=== PATIENT | male | born 1950 | race Caucasian/White ===

== ENCOUNTER 2016-09-07 20:48 | Emergency (ER) | payer MEDICARE ==
[~2016-09-07] VITALS: Ht 180.3 cm; Wt 88.9 kg
[~2016-09-07 20:48] MED LIST: CARV3.12 PO; DOXY50CA PO; ENOX100D SQ; FENO54TA PO; FOLI1TAB16 PO; FURO40TA4 PO; LISI-338 PO; POTA20LI27 PO; WARF-78 PO
[2016-09-07 21:00] VITALS: BP 165/102
[2016-09-07] MEDS ORDERED: HYDROcodone/APAP 5/325MG 1 TAB TABLET PO ONE (22:30)
[2016-09-07] MEDS ORDERED: DIPHTH,PERTUSS(ACELL),TET TOX 0.5 ML DISP.SYRIN. VAX IM ONE (22:30)
[2016-09-07] MEDS ORDERED: LIDOCAINE 1% / SOD BICARB 8.4% 20 ML VIAL. IJ ONE (22:38)
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
[2016-09-08] MEDS ORDERED: HYDR-971 PO (00:53)
[2016-09-08] MEDS ORDERED: CEPH-264 PO (00:53)
[2016-09-08] MEDS ORDERED: IBUP-1007 PO (00:53)
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
[2016-09-08] MEDS ORDERED: IBUPROFEN 600 MG TABLET. PO ONE (01:30)
[2016-09-08] MEDS ORDERED: HYDROcodone/APAP 5/325MG 1 TAB TABLET PO ONE (01:30)
--- NOTE | 2016-09-08 07:48 | RAD ---
Right wrist, 3 views, 09/07/2016: History: Wrist injury, pain There is a nondisplaced fracture of the distal radius. This probably involves the articular surface. No other fracture or dislocation is identified. There are moderate degenerative changes at the wrist. A well-defined lucency in the navicular bone is compatible with a degenerative type cyst. Moderate soft tissue swelling is present. IMPRESSION: Nondisplaced fracture of the distal right radius.
--- NOTE | 2016-09-08 08:05 | RAD ---
AP lumbar spine, 09/07/2016: History: Fall, back pain Only an AP view was obtained as requested. The vertebral heights cannot be adequately assessed on this incomplete exam. There appear to be mild scattered degenerative changes.
== END 2016-09-08 00:59 | disposition home or self-care (01) ==
LOC: ER 20:48
DX: S02.82XB Fracture of other specified skull and facial bones, left side, initial encounter for open fracture (principal); S02.2XXA Fracture of nasal bones, initial encounter for closed fracture; S52.501A Unspecified fracture of the lower end of right radius, initial encounter for closed fracture; S01.412A Laceration without foreign body of left cheek and temporomandibular area, initial encounter; S39.92XA Unspecified injury of lower back, initial encounter; I11.0 Hypertensive heart disease with heart failure; I50.9 Heart failure, unspecified; E78.00 Pure hypercholesterolemia, unspecified; G47.00 Insomnia, unspecified; E78.1 Pure hyperglyceridemia; I42.9 Cardiomyopathy, unspecified; Y04.0XXA Assault by unarmed brawl or fight, initial encounter; Y93.89 Activity, other specified; Y92.481 Parking lot as the place of occurrence of the external cause; Y99.8 Other external cause status
CPT/HCPCS: 12011; 12013; 29125; 70450; 70486; 72020; 72125; 73110; 90471; 90715; 99284-25

== ENCOUNTER → 2016-09-28 | Outpatient (CLI) | payer MEDICARE ==
[2016-09-07 21:00] VITALS: BP 165/102
[~2016-09-28] MED LIST changes: +CEPH-264 PO; +HYDR-971 PO; +IBUP-1007 PO
--- NOTE | 2016-09-28 16:50 | KCIC ---
MR LUMBAR SPINE HISTORY: Acute bilateral low back pain with sciatica Technique: Sagittal T2, sagittal STIR, and sagittal T1-weighted images were obtained. Additional axial T1 and T2 weighted imaging was also performed. FINDINGS: There is an acute compression fracture L1 with approximately 40 percent loss of vertebral body height. There is some retropulsion of the posterior cortex which nearly abuts the conus but does not cause mass effect upon it. The fracture appears to involve the anterior and middle columns. No other compression fractures are identified. There is moderate to advanced disc height loss at all levels. Visualized intra-abdominal contents are within normal limits. At L5-S1 there is severe right foraminal stenosis from correlation disc height loss and facet encroachment of the foramen. Correlate for right L5 radiculopathy. L4-L5 there is disc height loss but no spinal stenosis. At L3-L4 there is facet arthropathy and disc height loss. There is osteophytic encroachment of the left foramen which abuts the exiting L3 nerve but does not cause mass effect upon it. At L2-L3 there is no spinal stenosis. L1-L2 there is no spinal stenosis. IMPRESSION: Acute compression fracture at L1. There is retropulsion of the posterior cortex which nearly abuts the conus but does not cause mass effect upon it. The fracture involves the anterior and middle columns. Multilevel degenerative disc disease as detailed above. Of note, there is severe neural foraminal stenosis on the right at L5-S1. Correlate for right L5 radiculopathy symptoms. Electronically signed by: Zak Robins MD (09/28/2016 4:47 PM)
== END | disposition home or self-care (01) ==
LOC: KCIC MRI 15:37
PROVIDERS: ATTEND Family Medicine
DX: M48.56XA Collapsed vertebra, not elsewhere classified, lumbar region, initial encounter for fracture (principal); M51.36 Other intervertebral disc degeneration, lumbar region; M48.07 Spinal stenosis, lumbosacral region
CPT/HCPCS: 72148

== ENCOUNTER → 2016-11-04 | Outpatient (CLI) | payer MEDICARE ==
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
== END | disposition home or self-care (01) ==
LOC: RAD 15:59
PROVIDERS: ATTEND Neurological Surgery
DX: S32.000A Wedge compression fracture of unspecified lumbar vertebra, initial encounter for closed fracture (principal); X58.XXXA Exposure to other specified factors, initial encounter; Y93.89 Activity, other specified; Y92.89 Other specified places as the place of occurrence of the external cause; Y99.8 Other external cause status
CPT/HCPCS: 72100

== ENCOUNTER 2017-06-10 05:38 | Inpatient (IN) | payer MEDICARE ==
[2017-06-10 06:49] LABS: ADD MAN DIFF? NO
[2017-06-10 06:53] LABS: BASO # 0.1 x10^3/uL (0.0-0.2); BASO % 1 % (0-3); EOS # 0.1 x10^3/uL (0.0-0.7); EOS % 1 % (0-3); HEMATOCRIT 40.9 % (39.0-53.0); HEMOGLOBIN 13.7 g/dL (13.0-17.5); LYMPH # 1.2 x10^3/uL (1.0-4.8); LYMPH % 10 % (24-48); MEAN CORPUSCULAR HEMOGLOBIN 30 pg (25-35); MEAN CORPUSCULAR HGB CONC 34 g/dL (31-37); MEAN CORPUSCULAR VOLUME 89 fL (79-100); MONO # 0.6 x10^3/uL (0.0-1.1); MONO % 5 % (0-9); NEUT # 9.9 x10^3uL (1.8-7.7); NEUT % 83 % (31-73); PLATELET COUNT 233 x10^3/uL (140-400); RED BLOOD COUNT 4.59 x10^6/uL (4.30-5.70); RED CELL DISTRIBUTION WIDTH 14.2 % (11.5-14.5); WHITE BLOOD COUNT 11.9 x10^3/uL (4.0-11.0)
[2017-06-10 07:00] LABS: ANION GAP 13 (6-14); BLOOD UREA NITROGEN 26 mg/dL (8-26); BUN/CREATININE RATIO 17 (6-20); CALCIUM 9.2 mg/dL (8.5-10.1); CARBON DIOXIDE 25 mmol/L (21-32); CHLORIDE 100 mmol/L (98-107); CREATININE 1.5 mg/dL (0.7-1.3); GFR 46.7; GLUCOSE 159 mg/dL (70-99); POTASSIUM 3.7 mmol/L (3.5-5.1); SODIUM 138 mmol/L (136-145)
[2017-06-10 07:06] LABS: ALBUMIN 4.3 g/dL (3.4-5.0); ALK PHOS 55 U/L (46-116); ALT (SGPT) 26 U/L (16-63); AST (SGOT) 35 U/L (15-37); C-REACTIVE PROTEIN 2.5 mg/L (0-3.3); TOTAL BILIRUBIN 0.5 mg/dL (0.2-1.0); TOTAL PROTEIN 8.4 g/dL (6.4-8.2)
[2017-06-10] MEDS: ONDANSETRON PF 4 MG/2 ML VIAL. IV (07:09)
[2017-06-10] MEDS: fentaNYL PF VIAL 100 MCG/2 ML VIAL IV ×2 (07:09→08:27)
[2017-06-10 07:36] LABS: BACTERIA,URINE 0 /HPF (0-FEW); BILIRUBIN,URINE NEGATIVE (NEG); CLARITY,URINE CLEAR; COLOR,URINE YELLOW; GLUCOSE,URINE NEGATIVE (NEG); HYALINE CASTS, URINE OCCASIONAL /HPF; NITRITE,URINE NEGATIVE (NEG); PROTEIN,URINE 100 mg/dL (NEG-TRACE); RBC,URINE 0 /HPF (0-2); UROBILINOGEN,URINE 0.2 mg/dL (0.2 mg/dL); WBC,URINE 0 /HPF (0-4)
[2017-06-10] MEDS: IV NORMAL SALINE 1000ML BAG 1,000 ML IV ×2 (07:56→15:44)
[2017-06-10 08:23] LABS: LIPASE 89 U/L (73-393)
[2017-06-10] MEDS: IOHEXOL 300 MG/ML 100ML VIAL. IV (08:30)
[2017-06-10] MEDS ORDERED: CONTRAST GIVEN MC (08:30)
[2017-06-10] MEDS: IOHEXOL 240 MG/ML 50ML VIAL. PO (08:30)
[2017-06-10] MEDS ORDERED: ONDANSETRON PF 4 MG/2 ML VIAL. IV ×2 (12:15→14:45)
[2017-06-10] MEDS ORDERED: ACETAMINOPHEN 325 MG TABLET. PO (14:45)
[2017-06-10] MEDS ORDERED: hydrALAZINE 20 MG/ML VIAL. IVP (14:45)
[2017-06-10] MEDS ORDERED: traMADol 50 MG TABLET PO (14:45)
[2017-06-10] MEDS ORDERED: DOCUSATE SODIUM 100 MG CAPSULE. PO (14:45)
[2017-06-10] MEDS: MORPHINE SULFATE 2 MG/ML DISP.SYRIN. IV (15:16)
[2017-06-10 15:21] LABS: INR 1.1 (0.8-1.1); PROTHROMBIN TIME PATIENT 13.7 SEC (11.7-14.0)
[2017-06-10] MEDS: ENOXAPARIN 40 MG/0.4 ML SYRINGE. SQ (15:45)
[2017-06-10] MEDS: HYDROcodone/APAP 5/325MG 1 TAB TABLET PO ×2 (16:40→21:23)
[2017-06-10] MEDS: CARVEDILOL 12.5 MG TABLET. PO (16:40)
[2017-06-10] MEDS ORDERED: CARVEDILOL 3.125 MG TABLET. PO (17:00)
[2017-06-10] MEDS ORDERED: PNEUMOCOCCAL VAX SCREEN BY RX. MC (18:00)
[2017-06-10] MEDS: LACTOBACILLUS RHAMNOSUS GG 1 CAPSULE. PO (21:24)
[2017-06-10] MEDS: PNEUMOC CONJ VACC 23-VALENT 0.5 ML VIAL. VAX IM (21:27)
[2017-06-11] MEDS: MORPHINE SULFATE 2 MG/ML DISP.SYRIN. IV ×2 (01:18→20:40)
[2017-06-11] MEDS: IV NORMAL SALINE 1000ML BAG 1,000 ML IV ×2 (01:20→10:45)
[2017-06-11] MEDS: HYDROcodone/APAP 5/325MG 1 TAB TABLET PO ×2 (03:08→08:30)
[2017-06-11 04:45] LABS: BASO % 0 % (0-3); EOS % 0 % (0-3); HEMATOCRIT 41.3 % (39.0-53.0); HEMOGLOBIN 13.4 g/dL (13.0-17.5); LYMPH # 0.8 x10^3/uL (1.0-4.8); LYMPH % 6 % (24-48); MEAN CORPUSCULAR HEMOGLOBIN 29 pg (25-35); MEAN CORPUSCULAR HGB CONC 32 g/dL (31-37); MEAN CORPUSCULAR VOLUME 90 fL (79-100); MONO # 0.9 x10^3/uL (0.0-1.1); MONO % 7 % (0-9); NEUT # 11.6 x10^3uL (1.8-7.7); NEUT % 87 % (31-73); PLATELET COUNT 195 x10^3/uL (140-400); RED BLOOD COUNT 4.57 x10^6/uL (4.30-5.70); RED CELL DISTRIBUTION WIDTH 14.7 % (11.5-14.5); WHITE BLOOD COUNT 13.4 x10^3/uL (4.0-11.0)
[2017-06-11 05:08] LABS: ADD MAN DIFF? YES
[2017-06-11 05:12] LABS: ANION GAP 10 (6-14); BLOOD UREA NITROGEN 25 mg/dL (8-26); CALCIUM 8.6 mg/dL (8.5-10.1); CARBON DIOXIDE 26 mmol/L (21-32); CHLORIDE 101 mmol/L (98-107); CREATININE 1.7 mg/dL (0.7-1.3); GFR 40.4; GLUCOSE 115 mg/dL (70-99); POTASSIUM 3.7 mmol/L (3.5-5.1); SODIUM 137 mmol/L (136-145)
[2017-06-11] MEDS: LACTOBACILLUS RHAMNOSUS GG 1 CAPSULE. PO ×2 (08:30→20:37)
[2017-06-11] MEDS: FUROSEMIDE 20 MG TABLET PO (08:30)
[2017-06-11] MEDS: FOLIC ACID 1 MG TABLET. PO (08:30)
[2017-06-11] MEDS: FENOFIBRATE,MICRONIZED 134 MG CAPSULE PO (08:30)
[2017-06-11] MEDS: LISINOPRIL 5 MG TABLET. PO (08:31)
[2017-06-11] MEDS: CARVEDILOL 12.5 MG TABLET. PO ×2 (08:31→17:19)
[2017-06-11] MEDS: POTASSIUM CHLORIDE 10 MEQ TABLET.ER. PO (08:31)
[2017-06-11] MEDS: cefTRIAXone IV Push 1 GM VIAL. IVP ×2 (09:00→11:58)
[2017-06-11] MEDS ORDERED: POTASSIUM CHLORIDE 20 MEQ/15 ML ORAL LIQUID. PO (09:00)
[2017-06-11] MEDS ORDERED: FUROSEMIDE 40 MG TABLET. PO (09:00)
[2017-06-11] MEDS ORDERED: FENOFIBRATE 54 MG TABLET. PO (09:00)
[2017-06-11 11:59] LABS: % BANDS 7 % (0-9); % LYMPHS 5 % (24-48); % MONOS 9 % (0-10); % SEGS 79 % (35-66); PLT ESTIMATE ADEQUATE (ADEQUATE)
[2017-06-11 12:00] LABS: OVALOCYTES FEW
[2017-06-11] MEDS: ENOXAPARIN 40 MG/0.4 ML SYRINGE. SQ (17:20)
[2017-06-11] MEDS: HYDROcodone/APAP 10/325 1 TAB TABLET PO (20:37)
[2017-06-12] MEDS: FOLIC ACID 1 MG TABLET. PO (08:07)
[2017-06-12] MEDS: LACTOBACILLUS RHAMNOSUS GG 1 CAPSULE. PO (08:08)
[2017-06-12] MEDS: FUROSEMIDE 20 MG TABLET PO (08:08)
[2017-06-12] MEDS: POTASSIUM CHLORIDE 10 MEQ TABLET.ER. PO (08:08)
[2017-06-12] MEDS: FENOFIBRATE,MICRONIZED 134 MG CAPSULE PO (08:08)
[2017-06-12] MEDS: HYDROcodone/APAP 10/325 1 TAB TABLET PO (08:08)
[2017-06-12] MEDS: CARVEDILOL 12.5 MG TABLET. PO (08:09)
[2017-06-12] MEDS: LISINOPRIL 5 MG TABLET. PO (08:09)
[2017-06-12 11:08] LABS: ANION GAP 7 (6-14); BLOOD UREA NITROGEN 28 mg/dL (8-26); CALCIUM 8.1 mg/dL (8.5-10.1); CARBON DIOXIDE 27 mmol/L (21-32); CHLORIDE 98 mmol/L (98-107); CREATININE 2.2 mg/dL (0.7-1.3); GLUCOSE 141 mg/dL (70-99); POTASSIUM 3.5 mmol/L (3.5-5.1); SODIUM 132 mmol/L (136-145)
[2017-06-12] MEDS: cefTRIAXone IV Push 1 GM VIAL. IVP (11:31)
== END 2017-06-12 16:00 | disposition home or self-care (01) | DRG 698 ==
LOC: ER 05:38 → ED HOLD 11:53 → 6 SOUTH 14:15
DX: N28.0 Ischemia and infarction of kidney (principal); N17.0 Acute kidney failure with tubular necrosis; N12 Tubulo-interstitial nephritis, not specified as acute or chronic; I13.0 Hypertensive heart and chronic kidney disease with heart failure and stage 1 through stage 4 chronic kidney disease, or unspecified chronic kidney disease; I42.9 Cardiomyopathy, unspecified; N28.1 Cyst of kidney, acquired; E78.1 Pure hyperglyceridemia; E78.5 Hyperlipidemia, unspecified; I25.10 Atherosclerotic heart disease of native coronary artery without angina pectoris; I25.2 Old myocardial infarction; G47.00 Insomnia, unspecified; Z79.01 Long term (current) use of anticoagulants; J30.2 Other seasonal allergic rhinitis; Z79.899 Other long term (current) drug therapy; Z82.49 Family history of ischemic heart disease and other diseases of the circulatory system; Z83.3 Family history of diabetes mellitus; Z87.81 Personal history of (healed) traumatic fracture; N18.3 Chronic kidney disease, stage 3 (moderate)
CPT/HCPCS: 36415; 74177; 76770; 80048; 80053; 81001; 83690; 85007; 85025; 85610; 86140; 90732; 96361; 96365; 96375; 96376; 99285; 99285-25; J0690; J0696; J1650; J2270; J2405; J3010; J7030; Q9966; Q9967

== ENCOUNTER 2017-06-16 21:59 | Inpatient (IN) | payer MEDICARE ==
[2017-06-16 22:39] LABS: ANION GAP 9 (6-14); BLOOD UREA NITROGEN 13 mg/dL (8-26); BUN/CREATININE RATIO 8 (6-20); CALCIUM 8.3 mg/dL (8.5-10.1); CARBON DIOXIDE 29 mmol/L (21-32); CHLORIDE 99 mmol/L (98-107); CREATININE 1.7 mg/dL (0.7-1.3); GFR 40.4; GLUCOSE 120 mg/dL (70-99); POTASSIUM 3.9 mmol/L (3.5-5.1); SODIUM 137 mmol/L (136-145)
[2017-06-16 22:46] LABS: ALBUMIN 3.4 g/dL (3.4-5.0); ALBUMIN/GLOBULIN RATIO 0.8 (1.0-1.7); ALK PHOS 57 U/L (46-116); ALT (SGPT) 51 U/L (16-63); AST (SGOT) 36 U/L (15-37); TOTAL BILIRUBIN 0.5 mg/dL (0.2-1.0); TOTAL PROTEIN 7.8 g/dL (6.4-8.2)
[2017-06-16 22:47] LABS: TROPONINI 0.028 ng/mL (0.000-0.055)
[2017-06-16] MEDS: ACETAMINOPHEN 500 MG TABLET PO ×2 (22:47)
[2017-06-16 22:48] LABS: LACTIC ACID 1.5 mmol/L (0.4-2.0)
[2017-06-16] MEDS: dilTIAZem IV PUSH 25 MG/5 ML VIAL IVP ×2 (23:02)
[2017-06-16 23:14] LABS: ADD MAN DIFF? NO
[2017-06-16 23:16] LABS: BASO # 0.1 x10^3/uL (0.0-0.2); BASO % 1 % (0-3); EOS # 0.3 x10^3/uL (0.0-0.7); EOS % 4 % (0-3); HEMATOCRIT 37.4 % (39.0-53.0); HEMOGLOBIN 12.5 g/dL (13.0-17.5); LYMPH # 0.7 x10^3/uL (1.0-4.8); LYMPH % 9 % (24-48); MEAN CORPUSCULAR HEMOGLOBIN 30 pg (25-35); MEAN CORPUSCULAR HGB CONC 34 g/dL (31-37); MEAN CORPUSCULAR VOLUME 89 fL (79-100); MONO # 0.9 x10^3/uL (0.0-1.1); MONO % 12 % (0-9); NEUT # 5.9 x10^3uL (1.8-7.7); NEUT % 75 % (31-73); PLATELET COUNT 252 x10^3/uL (140-400); RED BLOOD COUNT 4.22 x10^6/uL (4.30-5.70); RED CELL DISTRIBUTION WIDTH 14.3 % (11.5-14.5); WHITE BLOOD COUNT 7.9 x10^3/uL (4.0-11.0)
[2017-06-16 23:19] LABS: BILIRUBIN,URINE NEGATIVE (NEG); COLOR,URINE YELLOW; GLUCOSE,URINE NEGATIVE (NEG); NITRITE,URINE NEGATIVE (NEG); PH,URINE 6.5; PROTEIN,URINE NEGATIVE (NEG-TRACE)
[2017-06-16 23:21] LABS: CLARITY,URINE CLEAR
[2017-06-16 23:22] LABS: BACTERIA,URINE 0 /HPF (0-FEW); RBC,URINE 0 /HPF (0-2); SQUAMOUS EPITHELIAL CELL,UR OCC /LPF; WBC,URINE 0 /HPF (0-4)
[2017-06-16] MEDS: FUROSEMIDE 40 MG/4 ML VIAL. IVP ×2 (23:26)
[2017-06-16 23:39] LABS: INFLUENZA A PATIENT NEGATIVE (NEGATIVE)
[2017-06-16 23:40] LABS: INFLUENZA B PATIENT POSITIVE (NEGATIVE); OBC FLU VALID
[2017-06-16] MEDS ORDERED: fentaNYL PF VIAL 100 MCG/2 ML VIAL IV ×2 (23:45)
[2017-06-16] MEDS ORDERED: NITROGLYCERIN SUBLINGUAL 0.4 MG BOTTLE OF 25. SL ×2 (23:45)
[2017-06-16] MEDS ORDERED: ONDANSETRON PF 4 MG/2 ML VIAL. IV ×2 (23:45)
[2017-06-16] MEDS: PIPERACILLIN/TAZOBACTAM 4.5 GM in IV NORMAL SALINE 100ML 100 ML IV (23:48)
[2017-06-16] MEDS: dilTIAZem VIAL 125 MG in IV DEXTROSE 5% 100 ML IV (23:59)
[2017-06-17] MEDS: OSELTAMIVIR 75 MG CAPSULE PO ×4 (00:27→08:16)
[2017-06-17] MEDS: VANCOMYCIN 2 GM in IV DEXTROSE 5 %-0.2 % NACL 500 ML IV (00:30)
[2017-06-17 03:37] LABS: TROPONINI 1.125 ng/mL (0.000-0.055)
[2017-06-17] MEDS: ACETAMINOPHEN 325 MG TABLET. PO ×6 (04:20→18:21)
[2017-06-17] MEDS ORDERED: HEPARIN for IV BOLUS 10,000 UNIT/10 ML VIAL. IV ×2 (04:30)
[2017-06-17] MEDS: HEPARIN for IV BOLUS 10,000 UNIT/10 ML VIAL. IV ×2 (05:02)
[2017-06-17] MEDS: HEPARIN 25,000UTS/500ML PREMIX 500 ML IV ×2 (05:07)
[2017-06-17 06:49] LABS: TROPONINI 3.285 ng/mL (0.000-0.055)
[2017-06-17] MEDS ORDERED: ANTI-COAG MONITOR BY PHARMACY. MC ×2 (09:30)
[2017-06-17 11:31] LABS: UNFRACTIONATED HEPARIN TESTING 1.03 IU/mL (0.30-0.70)
[2017-06-17 18:17] LABS: MRSA BY PCR Negative (Negative)
[2017-06-17] MEDS: METOPROLOL TART IMMED RELEASE 25 MG TABLET. PO ×4 (19:20→23:07)
[2017-06-17] MEDS: OSELTAMIVIR 30 MG CAPSULE PO ×2 (20:45)
[2017-06-17] MEDS: LACTOBACILLUS RHAMNOSUS GG 1 CAPSULE. PO ×2 (20:45)
[2017-06-18] MEDS: METOPROLOL TART IMMED RELEASE 25 MG TABLET. PO ×6 (06:11→17:40)
[2017-06-18] MEDS: HEPARIN PF for SUB-Q USE 5,000 UNIT/0.5 ML VIAL. SQ ×2 (06:14)
[2017-06-18] MEDS: OSELTAMIVIR 30 MG CAPSULE PO ×4 (08:50→20:51)
[2017-06-18] MEDS: LACTOBACILLUS RHAMNOSUS GG 1 CAPSULE. PO ×4 (08:50→20:51)
[2017-06-18 10:07] LABS: ANION GAP 7 (6-14); BLOOD UREA NITROGEN 21 mg/dL (8-26); CALCIUM 8.2 mg/dL (8.5-10.1); CARBON DIOXIDE 29 mmol/L (21-32); CHLORIDE 97 mmol/L (98-107); CHOLESTEROL 134 mg/dL (0-200); CREATININE 1.9 mg/dL (0.7-1.3); GFR 35.5; GLUCOSE 113 mg/dL (70-99); HDLC 18 mg/dL (40-60); LDLC 91 mg/dL (0-100); NON-HDL CHOLESTEROL 116 mg/dL (0-129); POTASSIUM 3.8 mmol/L (3.5-5.1); SODIUM 133 mmol/L (136-145); TRIGLYCERIDES 124 mg/dL (0-150); VLDLC 25 mg/dL (0-40)
[2017-06-18 10:09] LABS: CHOLESTEROL/HDL RATIO 7.4
[2017-06-18] MEDS: METOPROLOL TARTRATE 5 MG/5 ML VIAL. IVP ×2 (10:13)
[2017-06-18] MEDS: ASPIRIN ENTERIC COATED 81 MG TABLET.DR. PO ×2 (10:13)
[2017-06-18 10:17] LABS: THYROID STIM HORMONE (TSH) 1.237 uIU/mL (0.358-3.74)
[2017-06-18 10:19] LABS: HEMATOCRIT 36.9 % (39.0-53.0); HEMOGLOBIN 12.3 g/dL (13.0-17.5); MEAN CORPUSCULAR HEMOGLOBIN 29 pg (25-35); MEAN CORPUSCULAR HGB CONC 33 g/dL (31-37); MEAN CORPUSCULAR VOLUME 88 fL (79-100); PLATELET COUNT 277 x10^3/uL (140-400); RED BLOOD COUNT 4.19 x10^6/uL (4.30-5.70); RED CELL DISTRIBUTION WIDTH 14.7 % (11.5-14.5)
[2017-06-18] MEDS: FUROSEMIDE 40 MG/4 ML VIAL. IVP ×2 (10:21)
[2017-06-18] MEDS: ACETAMINOPHEN 325 MG TABLET. PO ×4 (12:43→23:31)
[2017-06-18 13:14] LABS: TROPONINI 3.625 ng/mL (0.000-0.055)
[2017-06-18] MEDS ORDERED: MAGNESIUM SULFATE 2GM 50 ML IV ×2 (14:00)
[2017-06-18 21:53] LABS: BILIRUBIN,URINE NEGATIVE (NEG); CLARITY,URINE CLEAR; COLOR,URINE YELLOW; GLUCOSE,URINE NEGATIVE (NEG); NITRITE,URINE NEGATIVE (NEG); PROTEIN,URINE 30 mg/dL (NEG-TRACE); UROBILINOGEN,URINE 0.2 mg/dL (0.2 mg/dL)
[2017-06-18 22:07] LABS: BACTERIA,URINE 0 /HPF (0-FEW); RBC,URINE RARE /HPF (0-2); SQUAMOUS EPITHELIAL CELL,UR FEW /LPF; WBC,URINE 0 /HPF (0-4)
[2017-06-18] MEDS: IPRATRPIUM/ALBUTEROL 0.5/2.5MG 3 ML NEBU. NEB ×2 (23:14)
[2017-06-19] MEDS: METOPROLOL TART IMMED RELEASE 25 MG TABLET. PO ×10 (00:13→23:02)
[2017-06-19 05:35] LABS: HEMOGLOBIN 10.9 g/dL (13.0-17.5)
[2017-06-19 06:25] LABS: ALBUMIN 2.6 g/dL (3.4-5.0); ANION GAP 8 (6-14); BLOOD UREA NITROGEN 24 mg/dL (8-26); CALCIUM 7.9 mg/dL (8.5-10.1); CARBON DIOXIDE 29 mmol/L (21-32); CHLORIDE 97 mmol/L (98-107); CREATININE 1.9 mg/dL (0.7-1.3); GFR 35.5; GLUCOSE 110 mg/dL (70-99); PHOSPHORUS 2.5 mg/dL (2.6-4.7); POTASSIUM 3.5 mmol/L (3.5-5.1); SODIUM 134 mmol/L (136-145)
[2017-06-19 06:29] LABS: MAGNESIUM 2.1 mg/dL (1.8-2.4)
[2017-06-19] MEDS: ACETAMINOPHEN 325 MG TABLET. PO ×4 (08:16→23:02)
[2017-06-19] MEDS: ASPIRIN ENTERIC COATED 81 MG TABLET.DR. PO ×2 (08:17)
[2017-06-19] MEDS: OSELTAMIVIR 30 MG CAPSULE PO ×4 (08:18→20:02)
[2017-06-19] MEDS: LACTOBACILLUS RHAMNOSUS GG 1 CAPSULE. PO ×4 (08:33→20:02)
[2017-06-19] MEDS: FUROSEMIDE 40 MG/4 ML VIAL. IVP ×2 (11:42)
[2017-06-19] MEDS: ANTI-COAG MONITOR BY PHARMACY. MC ×2 (14:00)
[2017-06-19] MEDS: LOPERAMIDE 2 MG CAPSULE PO ×2 (20:02)
[2017-06-19] MEDS: ZOLPIDEM 5 MG TABLET. PO ×2 (23:02)
[2017-06-20] MEDS: LOPERAMIDE 2 MG CAPSULE PO ×2 (05:23)
[2017-06-20] MEDS: METOPROLOL TART IMMED RELEASE 25 MG TABLET. PO ×4 (05:23→09:32)
[2017-06-20 07:00] LABS: ADD MAN DIFF? NO
[2017-06-20 07:03] LABS: BASO % 1 % (0-3); EOS % 1 % (0-3); HEMATOCRIT 35.6 % (39.0-53.0); HEMOGLOBIN 11.9 g/dL (13.0-17.5); LYMPH # 1.5 x10^3/uL (1.0-4.8); LYMPH % 33 % (24-48); MEAN CORPUSCULAR HEMOGLOBIN 29 pg (25-35); MEAN CORPUSCULAR HGB CONC 33 g/dL (31-37); MEAN CORPUSCULAR VOLUME 88 fL (79-100); MONO # 0.4 x10^3/uL (0.0-1.1); MONO % 8 % (0-9); NEUT # 2.7 x10^3uL (1.8-7.7); NEUT % 58 % (31-73); PLATELET COUNT 239 x10^3/uL (140-400); RED BLOOD COUNT 4.05 x10^6/uL (4.30-5.70); RED CELL DISTRIBUTION WIDTH 14.5 % (11.5-14.5); WHITE BLOOD COUNT 4.7 x10^3/uL (4.0-11.0)
[2017-06-20 07:27] LABS: ALBUMIN 2.8 g/dL (3.4-5.0); ANION GAP 6 (6-14); BLOOD UREA NITROGEN 24 mg/dL (8-26); CALCIUM 7.9 mg/dL (8.5-10.1); CARBON DIOXIDE 33 mmol/L (21-32); CHLORIDE 100 mmol/L (98-107); CREATININE 1.8 mg/dL (0.7-1.3); GFR 37.8; GLUCOSE 95 mg/dL (70-99); MAGNESIUM 2.4 mg/dL (1.8-2.4); PHOSPHORUS 2.4 mg/dL (2.6-4.7); POTASSIUM 3.4 mmol/L (3.5-5.1); SODIUM 139 mmol/L (136-145)
[2017-06-20] MEDS: OSELTAMIVIR 30 MG CAPSULE PO ×2 (09:32)
[2017-06-20] MEDS: ASPIRIN ENTERIC COATED 81 MG TABLET.DR. PO ×2 (09:32)
[2017-06-20] MEDS: LACTOBACILLUS RHAMNOSUS GG 1 CAPSULE. PO ×2 (09:32)
[2017-06-20] MEDS: guaiFENesin DM 600/30MG 1 TAB TAB.ER.12H PO ×2 (11:00)
[2017-06-20] MEDS: FUROSEMIDE 40 MG TABLET. PO ×2 (12:56)
[2017-06-20] MEDS: POTASSIUM CHLORIDE 20 MEQ TABLET.ER. PO ×2 (12:56)
[2017-06-20] MEDS ORDERED: APIXABAN 5 MG TABLET. PO ×2 (21:00)
[2017-06-21] MEDS ORDERED: POTASSIUM CHLORIDE 10 MEQ TABLET.ER. PO ×2 (08:00)
[2017-06-21] MEDS ORDERED: METOPROLOL SUCC 24HR ER 100 MG TAB.ER.24H. PO ×2 (09:00)
== END 2017-06-20 17:45 | disposition home or self-care (01) | DRG 280 ==
LOC: ED HOLD 22:56 → 2 SOUTH 06-18 08:08 → 1 WEST ICU 06-17 02:06 → ER 21:59
DX: I13.0 Hypertensive heart and chronic kidney disease with heart failure and stage 1 through stage 4 chronic kidney disease, or unspecified chronic kidney disease (principal); I50.43 Acute on chronic combined systolic (congestive) and diastolic (congestive) heart failure; I21.A1 Myocardial infarction type 2; N17.9 Acute kidney failure, unspecified; I27.20 Pulmonary hypertension, unspecified; R65.10 Systemic inflammatory response syndrome (SIRS) of non-infectious origin without acute organ dysfunction; I42.9 Cardiomyopathy, unspecified; I48.91 Unspecified atrial fibrillation; J10.1 Influenza due to other identified influenza virus with other respiratory manifestations; E78.00 Pure hypercholesterolemia, unspecified; G47.00 Insomnia, unspecified; E78.5 Hyperlipidemia, unspecified; E78.1 Pure hyperglyceridemia; N18.3 Chronic kidney disease, stage 3 (moderate); E87.6 Hypokalemia; G47.33 Obstructive sleep apnea (adult) (pediatric); Z82.49 Family history of ischemic heart disease and other diseases of the circulatory system; Z83.3 Family history of diabetes mellitus; Z87.891 Personal history of nicotine dependence; Z86.711 Personal history of pulmonary embolism; Z84.1 Family history of disorders of kidney and ureter
CPT/HCPCS: 36415; 71045; 71046; 80048; 80053; 80061; 80069; 81001; 83605; 83735; 84443; 84484; 85018; 85025; 85027; 85520; 87040; 87641; 87804; 87804-59; 93005; 93306; 96365; 96367; 96368; 96375; 97162-GP; 97165-GO; 99291; 99291-25; J1644; J1650; J1940; J2543; J3370; J3490; J7620

== ENCOUNTER → 2017-07-11 | Outpatient (CLI) | payer MEDICARE ==
[2017-07-11 15:15] LABS: ANION GAP 11 (6-14); BLOOD UREA NITROGEN 32 mg/dL (8-26); CALCIUM 8.6 mg/dL (8.5-10.1); CARBON DIOXIDE 28 mmol/L (21-32); CHLORIDE 103 mmol/L (98-107); CREATININE 1.8 mg/dL (0.7-1.3); GFR 37.8; GLUCOSE 96 mg/dL (70-99); POTASSIUM 3.7 mmol/L (3.5-5.1); SODIUM 142 mmol/L (136-145)
== END | disposition home or self-care (01) ==
LOC: LAB 14:43
DX: I42.9 Cardiomyopathy, unspecified (principal)
CPT/HCPCS: 36415; 80048

== ENCOUNTER 2017-07-23 06:32 | Inpatient (IN) | payer MEDICARE ==
[2017-07-23] MEDS: FUROSEMIDE 40 MG/4 ML VIAL. IVP (07:09)
[2017-07-23 07:16] LABS: ADD MAN DIFF? NO
[2017-07-23] MEDS: NITROGLYCERIN OINT 1 GM PACKET. TP (07:19)
[2017-07-23 07:20] LABS: BASO # 0.1 x10^3/uL (0.0-0.2); BASO % 2 % (0-3); EOS # 0.6 x10^3/uL (0.0-0.7); EOS % 6 % (0-3); HEMATOCRIT 38.1 % (39.0-53.0); HEMOGLOBIN 12.7 g/dL (13.0-17.5); LYMPH # 1.5 x10^3/uL (1.0-4.8); LYMPH % 16 % (24-48); MEAN CORPUSCULAR HEMOGLOBIN 30 pg (25-35); MEAN CORPUSCULAR HGB CONC 33 g/dL (31-37); MEAN CORPUSCULAR VOLUME 90 fL (79-100); MONO # 0.6 x10^3/uL (0.0-1.1); MONO % 6 % (0-9); NEUT # 6.6 x10^3uL (1.8-7.7); NEUT % 70 % (31-73); PLATELET COUNT 281 x10^3/uL (140-400); RED BLOOD COUNT 4.21 x10^6/uL (4.30-5.70); WHITE BLOOD COUNT 9.4 x10^3/uL (4.0-11.0)
[2017-07-23 07:27] LABS: INR 1.5 (0.8-1.1); PARTIAL THROMBOPLASTIN TIME 33 SEC (24-38); PROTHROMBIN TIME PATIENT 17.8 SEC (11.7-14.0)
[2017-07-23 07:35] LABS: ANION GAP 12 (6-14); BLOOD UREA NITROGEN 25 mg/dL (8-26); BUN/CREATININE RATIO 15 (6-20); CALCIUM 8.8 mg/dL (8.5-10.1); CARBON DIOXIDE 27 mmol/L (21-32); CHLORIDE 103 mmol/L (98-107); CREATININE 1.7 mg/dL (0.7-1.3); GFR 40.4; GLUCOSE 111 mg/dL (70-99); POTASSIUM 3.6 mmol/L (3.5-5.1); SODIUM 142 mmol/L (136-145)
[2017-07-23 07:37] LABS: ALBUMIN 3.7 g/dL (3.4-5.0); ALBUMIN/GLOBULIN RATIO 0.9 (1.0-1.7); ALK PHOS 71 U/L (46-116); ALT (SGPT) 36 U/L (16-63); AST (SGOT) 26 U/L (15-37); TOTAL BILIRUBIN 1.1 mg/dL (0.2-1.0); TOTAL PROTEIN 7.9 g/dL (6.4-8.2)
[2017-07-23 07:38] LABS: TROPONINI 0.022 ng/mL (0.000-0.055)
[2017-07-23 07:43] LABS: NT-PRO BNP 20124 pg/mL (0-124)
[2017-07-23] MEDS ORDERED: ONDANSETRON PF 4 MG/2 ML VIAL. IV (08:15)
[2017-07-23] MEDS ORDERED: MORPHINE SULFATE 4 MG/ML DISP.SYRIN. IV (08:15)
[2017-07-23] MEDS: POTASSIUM CHLORIDE 20 MEQ TABLET.ER. PO (20:43)
[2017-07-23] MEDS: HYDROcodone/APAP 5/325MG 1 TAB TABLET PO (20:44)
[2017-07-23] MEDS: ALBUTEROL SULFATE 2.5 MG/3 ML NEBU. NEB (20:51)
[2017-07-24] MEDS: ALBUTEROL SULFATE 2.5 MG/3 ML NEBU. NEB ×2 (02:12→20:33)
[2017-07-24 04:31] LABS: ADD MAN DIFF? NO
[2017-07-24 04:38] LABS: BASO # 0.1 x10^3/uL (0.0-0.2); BASO % 2 % (0-3); EOS # 0.5 x10^3/uL (0.0-0.7); EOS % 8 % (0-3); HEMATOCRIT 35.5 % (39.0-53.0); LYMPH # 2.1 x10^3/uL (1.0-4.8); LYMPH % 31 % (24-48); MEAN CORPUSCULAR HEMOGLOBIN 30 pg (25-35); MEAN CORPUSCULAR HGB CONC 34 g/dL (31-37); MEAN CORPUSCULAR VOLUME 90 fL (79-100); MONO # 0.5 x10^3/uL (0.0-1.1); MONO % 8 % (0-9); NEUT # 3.5 x10^3uL (1.8-7.7); NEUT % 52 % (31-73); PLATELET COUNT 229 x10^3/uL (140-400); RED BLOOD COUNT 3.95 x10^6/uL (4.30-5.70); WHITE BLOOD COUNT 6.8 x10^3/uL (4.0-11.0)
[2017-07-24] MEDS: HYDROcodone/APAP 5/325MG 1 TAB TABLET PO ×4 (04:52→21:03)
[2017-07-24 05:03] LABS: ANION GAP 11 (6-14); BLOOD UREA NITROGEN 31 mg/dL (8-26); CALCIUM 8.5 mg/dL (8.5-10.1); CARBON DIOXIDE 28 mmol/L (21-32); CHLORIDE 105 mmol/L (98-107); CREATININE 1.7 mg/dL (0.7-1.3); GFR 40.4; GLUCOSE 152 mg/dL (70-99); POTASSIUM 3.5 mmol/L (3.5-5.1); SODIUM 144 mmol/L (136-145)
[2017-07-24] MEDS: METOPROLOL SUCC 24HR ER 100 MG TAB.ER.24H. PO (10:48)
[2017-07-24] MEDS: FENOFIBRATE,MICRONIZED 134 MG CAPSULE PO (10:49)
[2017-07-24] MEDS: APIXABAN 5 MG TABLET. PO ×2 (10:49→16:56)
[2017-07-24] MEDS: SACUBITRIL/VALSARTAN 24/26MG TABLET. PO ×2 (10:49→21:04)
[2017-07-24] MEDS: FUROSEMIDE 40 MG/4 ML VIAL. IVP (11:23)
[2017-07-24] MEDS: ANTI-COAG MONITOR BY PHARMACY. MC (14:03)
[2017-07-24] MEDS: TEMAZEPAM 15 MG CAPSULE PO (21:04)
[2017-07-25 05:17] LABS: ADD MAN DIFF? YES; BASO # 0.2 x10^3/uL (0.0-0.2); BASO % 2 % (0-3); EOS # 1.2 x10^3/uL (0.0-0.7); EOS % 16 % (0-3); HEMATOCRIT 35.8 % (39.0-53.0); HEMOGLOBIN 11.8 g/dL (13.0-17.5); LYMPH # 1.8 x10^3/uL (1.0-4.8); LYMPH % 23 % (24-48); MEAN CORPUSCULAR HEMOGLOBIN 30 pg (25-35); MEAN CORPUSCULAR HGB CONC 33 g/dL (31-37); MEAN CORPUSCULAR VOLUME 91 fL (79-100); MONO # 0.6 x10^3/uL (0.0-1.1); MONO % 8 % (0-9); NEUT # 4.1 x10^3uL (1.8-7.7); NEUT % 52 % (31-73); PLATELET COUNT 227 x10^3/uL (140-400); RED BLOOD COUNT 3.94 x10^6/uL (4.30-5.70); RED CELL DISTRIBUTION WIDTH 16.5 % (11.5-14.5); WHITE BLOOD COUNT 7.9 x10^3/uL (4.0-11.0)
[2017-07-25 05:42] LABS: ANION GAP 6 (6-14); BLOOD UREA NITROGEN 27 mg/dL (8-26); CALCIUM 8.5 mg/dL (8.5-10.1); CARBON DIOXIDE 32 mmol/L (21-32); CHLORIDE 107 mmol/L (98-107); CREATININE 1.6 mg/dL (0.7-1.3); GFR 43.3; GLUCOSE 88 mg/dL (70-99); POTASSIUM 4.1 mmol/L (3.5-5.1); SODIUM 145 mmol/L (136-145)
[2017-07-25] MEDS: APIXABAN 5 MG TABLET. PO (09:03)
[2017-07-25] MEDS: HYDROcodone/APAP 5/325MG 1 TAB TABLET PO ×2 (09:04→16:26)
[2017-07-25] MEDS: FUROSEMIDE 20 MG TABLET PO (09:04)
[2017-07-25] MEDS: SACUBITRIL/VALSARTAN 24/26MG TABLET. PO (09:04)
[2017-07-25] MEDS: METOPROLOL SUCC 24HR ER 100 MG TAB.ER.24H. PO (09:04)
[2017-07-25 09:06] LABS: % EOS 19 % (0-5); % LYMPHS 20 % (24-48); % MONOS 9 % (0-10); % SEGS 52 % (35-66)
[2017-07-25 09:07] LABS: ANISOCYTOSIS SLIGHT; PLT ESTIMATE ADEQUATE (ADEQUATE)
[2017-07-25] MEDS: FENOFIBRATE,MICRONIZED 134 MG CAPSULE PO (14:10)
== END 2017-07-25 19:27 | disposition home or self-care (01) | DRG 291 ==
LOC: ER 06:32 → 2 NORTH 08:04
DX: I13.0 Hypertensive heart and chronic kidney disease with heart failure and stage 1 through stage 4 chronic kidney disease, or unspecified chronic kidney disease (principal); I50.43 Acute on chronic combined systolic (congestive) and diastolic (congestive) heart failure; I47.2 Ventricular tachycardia; I48.1 Persistent atrial fibrillation; N28.1 Cyst of kidney, acquired; I42.9 Cardiomyopathy, unspecified; E78.00 Pure hypercholesterolemia, unspecified; E78.5 Hyperlipidemia, unspecified; N18.9 Chronic kidney disease, unspecified; G47.00 Insomnia, unspecified; Z82.49 Family history of ischemic heart disease and other diseases of the circulatory system; Z83.3 Family history of diabetes mellitus; Z91.11 Patient's noncompliance with dietary regimen; Z91.14 Patient's other noncompliance with medication regimen
CPT/HCPCS: 36415; 71045; 80048; 80053; 83735; 83880; 84484; 85007; 85025; 85610; 85730; 93005; 94640; 96374; 97110-GP; 97116-GP; 97162-GP; 97165-GO; 99285; 99285-25; J1940; J7613

== ENCOUNTER → 2017-08-08 | Outpatient (CLI) | payer MEDICARE ==
[2017-08-08 17:05] LABS: ANION GAP 11 (6-14); BLOOD UREA NITROGEN 25 mg/dL (8-26); CALCIUM 8.4 mg/dL (8.5-10.1); CARBON DIOXIDE 28 mmol/L (21-32); CHLORIDE 105 mmol/L (98-107); CREATININE 1.9 mg/dL (0.7-1.3); GFR 35.5; GLUCOSE 87 mg/dL (70-99); MAGNESIUM 2.1 mg/dL (1.8-2.4); POTASSIUM 3.8 mmol/L (3.5-5.1); SODIUM 144 mmol/L (136-145)
== END | disposition home or self-care (01) ==
LOC: LAB 16:11
DX: I42.8 Other cardiomyopathies (principal); I13.0 Hypertensive heart and chronic kidney disease with heart failure and stage 1 through stage 4 chronic kidney disease, or unspecified chronic kidney disease; I50.9 Heart failure, unspecified; N18.3 Chronic kidney disease, stage 3 (moderate)
CPT/HCPCS: 36415; 80048; 83735

== ENCOUNTER 2017-09-02 16:51 | Inpatient (IN) | payer MEDICARE ==
[2017-09-02 17:26] LABS: ADD MAN DIFF? NO
[2017-09-02] MEDS: dilTIAZem IV PUSH 25 MG/5 ML VIAL IVP (17:26)
[2017-09-02 17:28] LABS: BASO # 0.1 x10^3/uL (0.0-0.2); BASO % 1 % (0-3); EOS % 1 % (0-3); HEMATOCRIT 43.3 % (39.0-53.0); LYMPH # 1.4 x10^3/uL (1.0-4.8); LYMPH % 19 % (24-48); MEAN CORPUSCULAR HEMOGLOBIN 28 pg (25-35); MEAN CORPUSCULAR HGB CONC 32 g/dL (31-37); MEAN CORPUSCULAR VOLUME 87 fL (79-100); MONO # 0.4 x10^3/uL (0.0-1.1); MONO % 6 % (0-9); NEUT # 5.4 x10^3uL (1.8-7.7); NEUT % 73 % (31-73); PLATELET COUNT 244 x10^3/uL (140-400); RED BLOOD COUNT 4.96 x10^6/uL (4.30-5.70); RED CELL DISTRIBUTION WIDTH 16.9 % (11.5-14.5); WHITE BLOOD COUNT 7.4 x10^3/uL (4.0-11.0)
[2017-09-02 17:38] LABS: ANION GAP 13 (6-14); BLOOD UREA NITROGEN 53 mg/dL (8-26); BUN/CREATININE RATIO 18 (6-20); CALCIUM 8.6 mg/dL (8.5-10.1); CARBON DIOXIDE 25 mmol/L (21-32); CHLORIDE 102 mmol/L (98-107); CREATININE 2.9 mg/dL (0.7-1.3); GFR 21.8; GLUCOSE 149 mg/dL (70-99); INR 2.1 (0.8-1.1); POTASSIUM 3.7 mmol/L (3.5-5.1); PROTHROMBIN TIME PATIENT 22.9 SEC (11.7-14.0); SODIUM 140 mmol/L (136-145)
[2017-09-02 17:45] LABS: ALBUMIN 3.2 g/dL (3.4-5.0); ALBUMIN/GLOBULIN RATIO 0.8 (1.0-1.7); ALK PHOS 59 U/L (46-116); ALT (SGPT) 60 U/L (16-63); AST (SGOT) 32 U/L (15-37); CREATINE KINASE 91 U/L (39-308); LIPASE 105 U/L (73-393); TOTAL BILIRUBIN 2.3 mg/dL (0.2-1.0); TOTAL PROTEIN 7.4 g/dL (6.4-8.2)
[2017-09-02 17:46] LABS: TROPONINI 0.051 ng/mL (0.000-0.055)
[2017-09-02] MEDS: METOPROLOL TARTRATE 5 MG/5 ML VIAL. IVP (17:51)
[2017-09-02 18:06] LABS: PLT ESTIMATE ADEQUATE (ADEQUATE)
[2017-09-02 18:09] LABS: POIKILOCYTOSIS SLIGHT
[2017-09-02 18:10] LABS: CKMB MASS 1.9 ng/mL (0.0-3.6); CREATINE KINASE 94 U/L (39-308)
[2017-09-02 18:10] LABS: NT-PRO BNP > 35000 pg/mL (0-124)
[2017-09-02 18:12] LABS: OVALOCYTES FEW; SCHISTOCYTES OCC
[2017-09-02] MEDS ORDERED: ACETAMINOPHEN 325 MG TABLET. PO (19:15)
[2017-09-02] MEDS ORDERED: fentaNYL PF VIAL 100 MCG/2 ML VIAL IV (19:15)
[2017-09-02] MEDS ORDERED: ONDANSETRON PF 4 MG/2 ML VIAL. IV (19:15)
[2017-09-02] MEDS: FUROSEMIDE 20 MG/2 ML VIAL. IVP (19:19)
[2017-09-02 19:35] LABS: BILIRUBIN,URINE SMALL (NEG); CLARITY,URINE CLEAR; COLOR,URINE AMBER; GLUCOSE,URINE NEGATIVE (NEG); NITRITE,URINE NEGATIVE (NEG); PROTEIN,URINE NEGATIVE (NEG-TRACE)
[2017-09-02 19:55] LABS: BACTERIA,URINE MOD /HPF (0-FEW); HYALINE CASTS, URINE MODERATE /HPF; SQUAMOUS EPITHELIAL CELL,UR OCC /LPF; WBC,URINE 20-40 /HPF (0-4)
[2017-09-03 04:52] LABS: ADD MAN DIFF? NO
[2017-09-03 05:06] LABS: BASO # 0.1 x10^3/uL (0.0-0.2); BASO % 1 % (0-3); EOS # 0.1 x10^3/uL (0.0-0.7); EOS % 2 % (0-3); HEMATOCRIT 41.5 % (39.0-53.0); HEMOGLOBIN 13.6 g/dL (13.0-17.5); LYMPH # 1.7 x10^3/uL (1.0-4.8); LYMPH % 29 % (24-48); MEAN CORPUSCULAR HEMOGLOBIN 29 pg (25-35); MEAN CORPUSCULAR HGB CONC 33 g/dL (31-37); MEAN CORPUSCULAR VOLUME 87 fL (79-100); MONO # 0.5 x10^3/uL (0.0-1.1); MONO % 8 % (0-9); NEUT # 3.7 x10^3uL (1.8-7.7); NEUT % 61 % (31-73); PLATELET COUNT 195 x10^3/uL (140-400); RED BLOOD COUNT 4.77 x10^6/uL (4.30-5.70); RED CELL DISTRIBUTION WIDTH 16.4 % (11.5-14.5)
[2017-09-03 05:44] LABS: ALBUMIN 2.8 g/dL (3.4-5.0); ALBUMIN/GLOBULIN RATIO 0.7 (1.0-1.7); ALK PHOS 55 U/L (46-116); ALT (SGPT) 53 U/L (16-63); ANION GAP 15 (6-14); AST (SGOT) 32 U/L (15-37); BLOOD UREA NITROGEN 57 mg/dL (8-26); BUN/CREATININE RATIO 22 (6-20); CALCIUM 8.6 mg/dL (8.5-10.1); CARBON DIOXIDE 23 mmol/L (21-32); CHLORIDE 102 mmol/L (98-107); CREATININE 2.6 mg/dL (0.7-1.3); GFR 24.7; GLUCOSE 122 mg/dL (70-99); POTASSIUM 3.7 mmol/L (3.5-5.1); SODIUM 140 mmol/L (136-145); TOTAL PROTEIN 6.7 g/dL (6.4-8.2)
[2017-09-03] MEDS ORDERED: ALBUTEROL SULFATE 2.5 MG/3 ML NEBU. NEB ×2 (10:15)
[2017-09-03] MEDS ORDERED: ACETAMINOPHEN 325 MG TABLET. PO (10:15)
[2017-09-03] MEDS ORDERED: DOCUSATE SODIUM 100 MG CAPSULE. PO (10:15)
[2017-09-03] MEDS ORDERED: hydrALAZINE 20 MG/ML VIAL. IVP (10:15)
[2017-09-03] MEDS ORDERED: MORPHINE SULFATE 4 MG/ML DISP.SYRIN. IV (10:15)
[2017-09-03] MEDS: POTASSIUM CHLORIDE 10 MEQ TABLET.ER. PO (10:53)
[2017-09-03] MEDS: LORazepam 1 MG TABLET PO ×2 (10:53→21:00)
[2017-09-03] MEDS: FUROSEMIDE 40 MG TABLET. PO (10:53)
[2017-09-03] MEDS: SACUBITRIL/VALSARTAN 24/26MG TABLET. PO ×2 (10:53→20:17)
[2017-09-03] MEDS: FENOFIBRATE,MICRONIZED 134 MG CAPSULE PO (10:53)
[2017-09-03] MEDS: METOPROLOL TART IMMED RELEASE 50 MG TABLET. PO ×2 (10:54→20:17)
[2017-09-03] MEDS ORDERED: FUROSEMIDE 40 MG TABLET. PO (11:00)
[2017-09-03] MEDS ORDERED: METOPROLOL SUCC 24HR ER 100 MG TAB.ER.24H. PO (11:00)
[2017-09-03] MEDS: ONDANSETRON PF 4 MG/2 ML VIAL. IV (11:26)
[2017-09-03] MEDS: ANTI-COAG MONITOR BY PHARMACY. MC (12:07)
[2017-09-03] MEDS: IPRATRPIUM/ALBUTEROL 0.5/2.5MG 3 ML NEBU. NEB ×3 (13:25→19:55)
[2017-09-03] MEDS: CITALOPRAM 10 MG TABLET. PO (14:11)
[2017-09-03] MEDS: APIXABAN 5 MG TABLET. PO (17:45)
[2017-09-04 05:15] LABS: ADD MAN DIFF? NO; BASO # 0.1 x10^3/uL (0.0-0.2); BASO % 1 % (0-3); EOS # 0.1 x10^3/uL (0.0-0.7); EOS % 2 % (0-3); HEMATOCRIT 42.2 % (39.0-53.0); HEMOGLOBIN 13.8 g/dL (13.0-17.5); LYMPH # 1.8 x10^3/uL (1.0-4.8); LYMPH % 30 % (24-48); MEAN CORPUSCULAR HEMOGLOBIN 29 pg (25-35); MEAN CORPUSCULAR HGB CONC 33 g/dL (31-37); MEAN CORPUSCULAR VOLUME 87 fL (79-100); MONO # 0.5 x10^3/uL (0.0-1.1); MONO % 9 % (0-9); NEUT # 3.4 x10^3uL (1.8-7.7); NEUT % 58 % (31-73); PLATELET COUNT 214 x10^3/uL (140-400); RED BLOOD COUNT 4.84 x10^6/uL (4.30-5.70); RED CELL DISTRIBUTION WIDTH 16.7 % (11.5-14.5); WHITE BLOOD COUNT 5.9 x10^3/uL (4.0-11.0)
[2017-09-04 05:42] LABS: ANION GAP 14 (6-14); BLOOD UREA NITROGEN 59 mg/dL (8-26); CALCIUM 8.3 mg/dL (8.5-10.1); CARBON DIOXIDE 24 mmol/L (21-32); CHLORIDE 104 mmol/L (98-107); CREATININE 2.7 mg/dL (0.7-1.3); GFR 23.7; GLUCOSE 114 mg/dL (70-99); POTASSIUM 3.9 mmol/L (3.5-5.1); SODIUM 142 mmol/L (136-145)
[2017-09-04 06:01] LABS: THYROID STIM HORMONE (TSH) 1.502 uIU/mL (0.358-3.74)
[2017-09-04] MEDS: APIXABAN 5 MG TABLET. PO ×2 (06:10→17:48)
[2017-09-04] MEDS: POTASSIUM CHLORIDE 10 MEQ TABLET.ER. PO ×2 (08:00→08:41)
[2017-09-04] MEDS: IPRATRPIUM/ALBUTEROL 0.5/2.5MG 3 ML NEBU. NEB ×4 (08:05→19:44)
[2017-09-04] MEDS: LORazepam 1 MG TABLET PO ×2 (08:41→21:00)
[2017-09-04] MEDS: FUROSEMIDE 40 MG TABLET. PO (08:41)
[2017-09-04] MEDS: METOPROLOL TART IMMED RELEASE 50 MG TABLET. PO ×2 (08:42→20:23)
[2017-09-04] MEDS: FENOFIBRATE,MICRONIZED 134 MG CAPSULE PO ×2 (08:43→09:00)
[2017-09-04] MEDS: SACUBITRIL/VALSARTAN 24/26MG TABLET. PO ×2 (08:43→20:24)
[2017-09-04] MEDS: CITALOPRAM 10 MG TABLET. PO (08:43)
[2017-09-04] MEDS: ANTI-COAG MONITOR BY PHARMACY. MC (11:16)
[2017-09-04] MEDS: HYDROcodone/APAP 5/325MG 1 TAB TABLET PO (20:49)
[2017-09-04] MEDS: traMADol 50 MG TABLET PO (22:36)
[2017-09-05 03:48] LABS: ADD MAN DIFF? NO
[2017-09-05 04:31] LABS: BASO % 1 % (0-3); EOS # 0.4 x10^3/uL (0.0-0.7); EOS % 6 % (0-3); HEMATOCRIT 42.2 % (39.0-53.0); HEMOGLOBIN 13.7 g/dL (13.0-17.5); LYMPH # 1.9 x10^3/uL (1.0-4.8); LYMPH % 30 % (24-48); MEAN CORPUSCULAR HEMOGLOBIN 28 pg (25-35); MEAN CORPUSCULAR HGB CONC 33 g/dL (31-37); MEAN CORPUSCULAR VOLUME 87 fL (79-100); MONO # 0.6 x10^3/uL (0.0-1.1); MONO % 10 % (0-9); NEUT # 3.3 x10^3uL (1.8-7.7); NEUT % 53 % (31-73); RED BLOOD COUNT 4.85 x10^6/uL (4.30-5.70); RED CELL DISTRIBUTION WIDTH 16.6 % (11.5-14.5); WHITE BLOOD COUNT 6.2 x10^3/uL (4.0-11.0)
[2017-09-05 05:10] LABS: ANION GAP 11 (6-14); BLOOD UREA NITROGEN 62 mg/dL (8-26); CALCIUM 8.2 mg/dL (8.5-10.1); CARBON DIOXIDE 24 mmol/L (21-32); CHLORIDE 104 mmol/L (98-107); CREATININE 2.9 mg/dL (0.7-1.3); GFR 21.8; GLUCOSE 110 mg/dL (70-99); POTASSIUM 3.9 mmol/L (3.5-5.1); SODIUM 139 mmol/L (136-145)
[2017-09-05] MEDS: IPRATRPIUM/ALBUTEROL 0.5/2.5MG 3 ML NEBU. NEB ×4 (08:49→19:31)
[2017-09-05] MEDS: LORazepam 1 MG TABLET PO ×2 (09:00→21:06)
[2017-09-05] MEDS: METOPROLOL TART IMMED RELEASE 50 MG TABLET. PO ×2 (09:00→21:00)
[2017-09-05] MEDS: CITALOPRAM 10 MG TABLET. PO (10:21)
[2017-09-05] MEDS: SACUBITRIL/VALSARTAN 24/26MG TABLET. PO ×2 (10:22→21:05)
[2017-09-05] MEDS: HYDROcodone/APAP 5/325MG 1 TAB TABLET PO (10:22)
[2017-09-05] MEDS: POTASSIUM CHLORIDE 10 MEQ TABLET.ER. PO (10:23)
[2017-09-05] MEDS: APIXABAN 5 MG TABLET. PO ×2 (10:23→18:00)
[2017-09-05] MEDS: FUROSEMIDE 40 MG TABLET. PO (10:23)
[2017-09-05] MEDS: FENOFIBRATE,MICRONIZED 134 MG CAPSULE PO (10:23)
[2017-09-05] MEDS: PROMETH/CODEINE 6.25/10MG 5 ML SYRUP. PO (10:28)
[2017-09-05 10:57] LABS: PLATELET COUNT 210 x10^3/uL (140-400)
[2017-09-06] MEDS: APIXABAN 5 MG TABLET. PO (06:18)
[2017-09-06] MEDS: FUROSEMIDE 40 MG TABLET. PO ×2 (07:44→09:04)
[2017-09-06] MEDS: SACUBITRIL/VALSARTAN 24/26MG TABLET. PO (07:44)
[2017-09-06] MEDS: METOPROLOL TART IMMED RELEASE 50 MG TABLET. PO ×2 (07:45→14:24)
[2017-09-06] MEDS: IPRATRPIUM/ALBUTEROL 0.5/2.5MG 3 ML NEBU. NEB ×3 (07:46→15:09)
[2017-09-06] MEDS: LORazepam 1 MG TABLET PO (07:47)
[2017-09-06] MEDS: ANTI-COAG MONITOR BY PHARMACY. MC (08:31)
[2017-09-06] MEDS: CITALOPRAM 10 MG TABLET. PO (09:04)
[2017-09-06] MEDS: POTASSIUM CHLORIDE 10 MEQ TABLET.ER. PO (09:04)
[2017-09-06] MEDS: FENOFIBRATE,MICRONIZED 134 MG CAPSULE PO (09:04)
== END 2017-09-06 17:30 | DRG 291 ==
LOC: ER 16:51 → 2 NORTH 18:49
DX: I13.0 Hypertensive heart and chronic kidney disease with heart failure and stage 1 through stage 4 chronic kidney disease, or unspecified chronic kidney disease (principal); N17.0 Acute kidney failure with tubular necrosis; I50.23 Acute on chronic systolic (congestive) heart failure; E44.0 Moderate protein-calorie malnutrition; I48.1 Persistent atrial fibrillation; N17.9 Acute kidney failure, unspecified; I42.9 Cardiomyopathy, unspecified; E78.00 Pure hypercholesterolemia, unspecified; E78.5 Hyperlipidemia, unspecified; F32.9 Major depressive disorder, single episode, unspecified; J40 Bronchitis, not specified as acute or chronic; N18.3 Chronic kidney disease, stage 3 (moderate); N28.1 Cyst of kidney, acquired; Z66 Do not resuscitate; Z79.01 Long term (current) use of anticoagulants; Z79.899 Other long term (current) drug therapy; Z82.49 Family history of ischemic heart disease and other diseases of the circulatory system; Z91.14 Patient's other noncompliance with medication regimen; Z83.3 Family history of diabetes mellitus; Z91.19 Patient's noncompliance with other medical treatment and regimen; Z68.27 Body mass index [BMI] 27.0-27.9, adult
CPT/HCPCS: 36415; 71045; 80048; 80053; 81001; 82550; 82553; 83690; 83880; 84443; 84484; 85025; 85610; 93005; 94640; 94760; 96374; 96375; 97116-GP; 97162-GP; 97166-GO; 97530-GO; 97530-GP; 99285; 99285-25; J2060; J2405; J3490; J7620